=== PATIENT | male | born 1970 | race Caucasian/White ===

== ENCOUNTER 2019-05-20 13:11 | Outpatient (CLI) | payer MEDICAID ==
--- NOTE | 2019-05-20 14:34 | GI Initial Consult Note ---
GI: Plan Plan Dictated #[id number] Regina Sutherland NP May 20, 2019 14:34
--- NOTE | 2019-05-20 18:15 | Consultation ---
DATE OF CONSULTATION: 05/20/2019 GASTROENTEROLOGY CONSULTATION ATTENDING PHYSICIAN: Singh Cohen M.D. HISTORY OF PRESENT ILLNESS: This is a 48-year-old male patient, who presents today with complaint of abdominal discomfort for approximately 3 to 6 months. The patient was seen, awake, alert, and oriented x4. No apparent distress with no active signs and symptoms of nausea and vomiting. The patient denied any constipation or diarrhea. The patient states that his abdominal pain is more localized in the epigastric area, which he states that it feels like a spasm. The patient had a recent visit to another outside facility doctor, who tested him for a hiatal hernia, which was negative. The patient does have a history of acid reflux for which he states that he has taken Prilosec prior with 0 to minimal relief. The patient's abdomen is soft, nondistended, mild tenderness to the epigastric region. Bowel sounds present in all quadrants. The patient has no history of endoscopy or colonoscopy. PAST MEDICAL HISTORY: Acid reflux. PAST SURGICAL HISTORY: The patient denies. MEDICATION: The patient has no medication. REVIEW OF SYSTEMS: See HPI. PHYSICAL EXAMINATION: GENERAL: No apparent distress. No active signs of nausea, vomiting, or diarrhea. CURRENT VITAL SIGNS: Temperature of 98.4, blood pressure 138/67, pulse of 68, and oxygen saturation is 99% on room air. Height is 5 feet 11 inches and weight is 194. HEENT: Head is normocephalic. EENT, PERRLA. NECK: Supple. RESPIRATIONS: Clear bilateral to auscultation. CARDIOVASCULAR: Regular rhythm. GASTROINTESTINAL: See HPI. RECTAL: Deferred. MUSCULOSKELETAL: Normal inspection. BACK: Normal. NEUROLOGICAL: The patient is alert and oriented x4. SKIN: Normal in texture. Normal color. No rash. ASSESSMENT AND PLAN: 1. Abdominal pain. 2. GERD. PLAN: Given that the patient has had consistent epigastric discomfort for approximately 3 to 6 months without any relief from medication, we will order abdominal pelvis CT to evaluate any gastric inflammation or hiatal hernia present. If imaging studies are negative, we will consider doing an upper endoscopy to rule out any possible H. pylori infection. We will follow with additional recommendations post imaging study. Thank you for this referral. Singh Cohen M.D. Tequila-Lam Sutherland N.P. DR: KEVIN JOB#: [id number] CC:
== END 2019-05-20 15:11 | disposition home or self-care (01) ==
LOC: PAN 13:11
DX: R14.0 Abdominal distension (gaseous) (principal); K21.9 Gastro-esophageal reflux disease without esophagitis

== ENCOUNTER 2019-12-02 13:29 | Outpatient (CLI) | payer MEDICAID ==
--- NOTE | 2019-12-02 14:26 | General Progress Note ---
Assessment/Plan Assessment/Plan: screening colon eval plan colonoscopy when authorization is obtained Subjective ROS Limited/Unobtainable: No Objective General Appearance: alert EENT: normal ENT inspection Neck: supple Cardiovascular: normal rate Respiratory/Chest: lungs clear Abdomen: normal bowel sounds, non tender, soft Extremities: non-tender Singh Cohen MD Dec 02, 2019 14:26
== END 2019-12-02 15:29 | disposition home or self-care (01) ==
LOC: PAN 13:29
DX: Z00.00 Encounter for general adult medical examination without abnormal findings (principal)
CPT/HCPCS: 99212